=== PATIENT | female | born 1955 | race Caucasian/White ===

== ENCOUNTER 2022-10-18 08:22 | Emergency (ER) | payer BC, MEDICAID ==
[~2022-10-18] VITALS: Ht 154.9 cm; Wt 83.5 kg
[2022-10-18 08:25] VITALS: BP 109/65
--- NOTE | 2022-10-18 08:35 | NUR ---
AMBULATED WITH WALKER TO BED 12
--- NOTE | 2022-10-18 08:52 | NUR ---
ASSUMED PATIENT CARE, NURSING ASSESSMENT COMPLETED.
[2022-10-18] MEDS ORDERED: CYCL-711 PO (09:37)
[2022-10-18] MEDS ORDERED: NAPR-1704 PO (09:37)
[2022-10-18] MEDS ORDERED: KETOROLAC 60 MG/2 ML VIAL IM ONE (09:40)
[2022-10-18 09:58] VITALS: BP 110/62
--- NOTE | 2022-10-18 09:59 | NUR ---
Patient discharged with v/s stable. Written and verbal after care instructions given and explained. Patient alert, oriented and verbalized understanding of instructions. Ambulatory with steady gait. All questions addressed prior to discharge. ID band removed. Patient advised to follow up with PMD. Rx of FLEXERIL, NAPROSYN given. Patient educated on indication of medication including possible reaction and side effects. Opportunity to ask questions provided and answered.
== END 2022-10-18 09:59 | disposition home or self-care (01) ==
LOC: MED 08:22
DX: M54.50 Low back pain, unspecified (principal); E11.9 Type 2 diabetes mellitus without complications; I10 Essential (primary) hypertension; Z79.4 Long term (current) use of insulin; Z79.899 Other long term (current) drug therapy; Z98.890 Other specified postprocedural states
CPT/HCPCS: 96372; 99283; J1885